=== PATIENT | female | born 1940 | race Caucasian/White ===

== ENCOUNTER → 2016-08-02 | Day surgery (SDC) | payer MEDICARE, OTHER ==
[~2016-08-02] MED LIST: BUPIVACAINE HCL PF 0.5% 10 ML VIAL ONE; KETOROLAC TROMETHAMINE 30 MG/ML (IVP) VIAL IV PUSH ONE; LACTATED RINGER'S 1000 ML INJ 1,000 ML ONE; MIDAZOLAM HCL 2 MG/2 ML VIAL ONE; ONDANSETRON HCL 4 MG/2 ML VIAL IV PUSH ONE; PROPOFOL 100 MG/10 ML INJ IV ONE; ceFAZolin 2 GM PREMIX 50 ML ONE
--- NOTE | 2016-08-02 14:34 | TN ---
cc: MECHE PRAKASH DATE OF SURGERY: 08/02/2016 PRINCIPAL DIAGNOSIS Lobular neoplasia of the right breast. POSTOPERATIVE DIAGNOSIS Lobular neoplasia of the right breast. PROCEDURE PERFORMED Right breast needle-localized lumpectomy. SURGEON Meche Prakash MD ANESTHESIA General via LMA device. INDICATION The patient is a 75-year-old female who had a recent ultrasound-guided biopsy which demonstrated lobular neoplasia of the right breast. She now presents for re-excision of the area. FINDINGS AT THE TIME OF SURGERY Specimen mammogram did demonstrate an intact wire and the biopsy clip was present in the excised tissue. PROCEDURE PERFORMED After informed consent was obtained and site verification was performed, the patient was brought to the radiology suite where she underwent needle localization of her prior biopsy site using mammographic guidance. She was then brought to the major operating room where she underwent general anesthesia via LMA device. She was given a single dose of IV Ancef and sequential compression hose were placed. The right breast was prepped and draped in sterile fashion. A periareolar skin incision was anesthetized with 0.5% Marcaine plain and incised sharply in the 11 o'clock location. The lesion was identified at 11 o'clock 9 cm from the nipple. Sharp and electrocautery dissection were performed until the wire entry point through the skin was identified and secured with a hemostat. The wire was cut off at the skin with pin cutters and a 2-0 Silk transfixion suture was placed at the wire entry point into the breast tissue. Circumferential dissection was then performed around the wire using both sharp and electrocautery dissection and the specimen was oriented with two sutures anteriorly, one short suture superiorly, and one long suture laterally. The specimen was sent to mammography with the findings as noted and was then sent for permanent pathologic evaluation. Hemostasis was easily obtained with electrocautery and the wound was closed using interrupted 3-0 Vicryl subcutaneous sutures and 4-0 Monocryl subcuticular suture. Steri-Strips and sterile dressing were applied. The patient tolerated the procedure well with minimal blood loss and she was extubated in the operating room and brought to recovery room in good condition. All sponge and needle counts were correct at the conclusion of the case. Meche Prakash MD CEW/TLIra /2:08 PM /2:18 PM
== END | disposition home or self-care (01) ==
LOC: ESDC 09:40
PROVIDERS: ATTEND Surgery
DX: C50.911 Malignant neoplasm of unspecified site of right female breast (principal)
CPT/HCPCS: 00400; 19125; 88307; J0690; J1885; J2250; J2405; J3010; J7120